=== PATIENT | male | born 1960 | race Caucasian/White ===

== ENCOUNTER 2018-08-01 17:55 | Observation (INO) | payer OTHER ==
--- NOTE | 2018-08-01 18:39 | EDPHY ---
H & P Stated Complaint: abd pain Time Seen by Provider: 08/01/18 18:39 HPI/ROS: HPI CHIEF COMPLAINT: Abdominal pain, nausea HISTORY OF PRESENT ILLNESS: 58-year-old male, history of ventral hernia repaired SBO, history of appendicitis, presents emergency room with abdominal pain. Patient states this started yesterday. He has had increasing bloating and nausea. Abdominal discomfort mid abdomen. He has not had any vomiting. Denies any diarrhea. He does state he had a bowel movement x2 today. As well as flatus. However increasing abdominal discomfort. Decided come the emergency room for evaluation Denies any chest pain or shortness of breath or fever. Past Medical History: Significant medical history for ventral hernia repair, small-bowel obstruction, appendicitis Past Surgical History: Hernia repair, appendicitis. Social History: Denies drugs alcohol tobacco. Family History: Noncontributory ROS REVIEW OF SYSTEMS: 10 Systems were reviewed and negative with the exception of the elements mentioned in the history of present illness. Exam Constitutional nontoxic appearing, triage nursing summary reviewed, vital signs reviewed, awake/alert. Eyes normal conjunctivae and sclera, EOMI, PERRLA. HENT normal inspection, atraumatic, moist mucus membranes, no epistaxis, neck supple/ no meningismus, no raccoon eyes. Respiratory clear to auscultation bilaterally, normal breath sounds, no respiratory distress, no wheezing. Cardiovascular rate normal, regular rhythm, no murmur, no edema, distal pulses normal. Gastrointestinal mild tender palpation diffusely, no peritoneal signs, no rebound, no guarding, normal bowel sounds, no distension, no pulsatile mass. Genitourinary no CVA tenderness. Musculoskeletal no midline vertebral tenderness, full range of motion, no calf swelling, no tenderness of extremities, no meningismus, good pulses, neurovascularly intact. Skin pink, warm, & dry, no rash, skin atraumatic. Neurologic awake, alert and oriented x 3, AAOx3, moves all 4 extremities equally, motor intact, sensory intact, CN II-XII intact, normal cerebellar, normal vision, normal speech. Psychiatric normal mood/affect. Heme/Lymph/Immune no lymphadenopathy. Differential diagnosis includes but is not limited to and in no particular order : Bowel obstruction, appendicitis, gallbladder disease, diverticulitis, colitis , enteritis, perforated viscus, gastritis, GERD, esophagitis, urinary tract infection, pyelonephritis, kidney stones Medical Decision Making: Plan for this patient IV establishment IV fluid bolus , 4 mg Zofran for nausea, basic blood work, KUB to rule out abnormal bowel gas pattern. And re-evaluate. May need to CT. Re-evaluation: KUB reviewed. No free air. However does have somewhat of abnormal bowel gas pattern. Plan will be for CT scan abdomen pelvis with IV contrast. CT scan abdomen pelvis with IV contrast called to me by Dr. Borges. This shows small bowel obstruction with distal small-bowel dilatations. This appears to have an adhesion in the right lower quadrant. He has had an appendectomy. Plan for NG tube. Plan for Medical-Surgical admission with surgery. Will consult surgery for this. 2120: I spoke with General surgery Dr. Clayton who is going to see and evaluate the patient. The patient has small-bowel obstruction. NG tube has been ordered given the amount of fluid in his stomach. Plan for hospital admission. Patient this time 9:21 p.m. Is hemodynamically stable no acute distress. Plan for admission SBO. Source: Patient - Personal History Current Tetanus/Diphtheria Vaccine: Yes Current Tetanus Diphtheria and Acellular Pertussis (TDAP): Yes Tetanus Vaccine Date: un sure - Medical/Surgical History Hx Asthma: No Hx Chronic Respiratory Disease: No Hx Diabetes: No Hx Cardiac Disease: No Hx Renal Disease: No Hx Cirrhosis: No Hx Alcoholism: No Hx HIV/AIDS: No Hx Splenectomy or Spleen Trauma: No Other PMH: medical- GOUT. surgical- hernia, tonsilectomy, growth from groin removed as child, previous admissions with bowel issues unknown etiolgy, appy - Social History Smoking Status: Never smoked Constitutional: Initial Vital Signs Temperature (C) 36.3 C 08/01/18 18:07 Heart Rate 53 L 08/01/18 18:07 Respiratory Rate 16 08/01/18 18:07 Blood Pressure 131/85 H 08/01/18 18:07 O2 Sat (%) 99 08/01/18 18:07 O2 Delivery Mode Room Air O2 (L/minute) 2 Allergies/Adverse Reactions: Penicillins Allergy (Intermediate, Verified 08/01/18 18:06) Itching Home Medications: Medication Instructions Recorded Herbals/Supplements -Info Only 1 ea PO DAILY 03/05/16 Acetaminophen/ASA/Caffeine 1 each PO DAILY PRN 08/01/18 [Excedrin Tablet (*)] Allopurinol [Allopurinol 300 MG 150 mg PO Q2D 08/01/18 (RX)] Medical Decision Making - Data Points Laboratory Results: Laboratory Results 08/01/18 18:50 08/01/18 18:50 Medications Given: Discontinued Medications Benzocaine (Hurricaine [place]) 1 each MM EDNOW ONE Stop: 08/01/18 21:47 Last Admin: 08/01/18 21:48 Dose: 1 each Hydromorphone HCl (Dilaudid) 0.5 mg IVP EDNOW ONE Stop: 08/01/18 20:02 Last Admin: 08/01/18 20:06 Dose: 0.5 mg Sodium Chloride (Ns) 1,000 mls @ 0 mls/hr IV EDNOW ONE; Wide Open PRN Reason: Protocol Stop: 08/01/18 18:46 Last Admin: 08/01/18 19:04 Dose: 1,000 mls Sodium Chloride (Ns) 1,000 mls @ 125 mls/hr IV CONT LEONARDO Stop: 01/28/19 21:44 Last Admin: 08/01/18 23:24 Dose: 1,000 mls Lidocaine (Lidocaine 2% Viscous) 5 ml PO EDNOW ONE Stop: 08/01/18 21:45 Last Admin: 08/01/18 21:46 Dose: 5 ml Ondansetron HCl (Zofran) 4 mg IVP EDNOW ONE Stop: 08/01/18 18:46 Last Admin: 08/01/18 19:05 Dose: 4 mg Point of Care Test Results: Chemistry 08/01/18 19:04 POC Troponin I 0.00 ng/mL ng/mL (0.00-0.08) Departure - Departure Disposition: [facility] Inpatient Acute Clinical Impression: SBO (small bowel obstruction) Condition: Good
[2018-08-01] MEDS ORDERED: ONDANSETRON 4 MG/2 ML VIAL IVP ONE (18:45)
[2018-08-01] MEDS ORDERED: NS 1,000 ML IV ONE (18:45)
[2018-08-01 19:04] LABS: PLATELET COUNT 197 10^3/uL (150-400)
[2018-08-01 19:20] LABS: INR 0.99 (0.83-1.16); PROTIME(PATIENT) 13.3 SEC (12.0-15.0)
[2018-08-01] MEDS ORDERED: IOPAMIDOL (ISOVUE-300) 100 ML BTL ONE (19:51)
[2018-08-01] MEDS ORDERED: HYDROmorphONE/DILAUDID 2 MG/ML INJ IVP ONE (20:01)
[2018-08-01] MEDS ORDERED: LIDOCAINE 2% JELLY 5 ML TUBE ONE (21:03)
[2018-08-01] MEDS ORDERED: BENZOCAINE UNIT DOSE SPRAY HURRICAINE MM ONE ×2 (21:03→21:46)
[2018-08-01] MEDS ORDERED: ONDANSETRON DISINTEGRATING 4 MG TAB PO PRN (21:40)
[2018-08-01] MEDS ORDERED: HYDROmorphONE/DILAUDID 1 MG/ML INJ IVP PRN (21:40)
[2018-08-01] MEDS ORDERED: ACETAMINOPHEN 325 MG TAB PO PRN (21:40)
[2018-08-01] MEDS ORDERED: ONDANSETRON 4 MG/2 ML VIAL IVP PRN (21:40)
[2018-08-01] MEDS ORDERED: LIDOCAINE 2% VISCOUS 15 ML UDCUP PO ONE (21:44)
[2018-08-01] MEDS ORDERED: NS 1,000 ML IV SCH (21:45)
--- NOTE | 2018-08-01 22:45 | GHP ---
DATE OF ADMISSION: 08/01/2018 CHIEF COMPLAINT: Abdominal pain. HISTORY OF PRESENT ILLNESS: This is a 58-year-old male presents with an acute onset abdominal pain. Briefly, he states that the last few days he was in his usual state of health, tolerating regular di et. States that he awoke today, had some increasing abdominal distention, which transitioned to pain . This progressed throughout the day. He does endorse having multiple bowel movements and passing f latus throughout the day. He has not been nauseated or vomited, but has had similar issues like this in the past, which prompted his presentation here [facility]. On my examination of the patient, he magalie lly denies pain after being medicated stating that he is somewhat frustrated as to the recurrent natu re of these bowel obstructions, but really has no complaints at this point in time. When he does hav e the pain, he describes it as a colicky-type pain without any centralization or location. Specifica lly, he states that it comes in waves. At its worst intensity, it is about a 5/10. He denies having any fevers or chills. PAST MEDICAL HISTORY: Gout. PAST SURGICAL HISTORY: He had a ventral hernia repair performed in 2002 or 2003. He had a laparosco pic appendectomy performed in 2016. CURRENT MEDICATIONS: Include allopurinol. ALLERGIES: To penicillin. SOCIAL HISTORY: Is very active, runs. Denies illicit drug use. REVIEW OF SYSTEMS: A full 10-point review was performed. PHYSICAL EXAMINATION: VITAL SIGNS: Temperature is 36.3, blood pressure is 115/71, heart rate is 52, and he is 97% on room air. GENERAL: He appears comfortable, in no apparent distress. EYES: His p upils are equal, round, and reactive to light and accommodation. He has anicteric sclerae, and his e xtraocular movements are intact. EARS, NOSE, MOUTH AND THROAT: He has dry mucous membranes. His he aring is normal. He has normal dentition. CARDIOVASCULAR: He has a regular rate and rhythm without any murmurs, rubs, or gallops. He is bradycardic. RESPIRATORY: There is no respiratory distress, rales or rhonchi. He is otherwise clear to auscultation bilaterally. GI: His abdomen is soft, nond istended, nontender. He has hypoactive bowel sounds. There are no masses. There is no rebound, ten derness or guarding appreciated. SKIN: Warm, normal color. No rashes or abrasions. MUSCULOSKELETA L: Full muscular strength without any muscular tenderness with normal joint range of motion. NEUROL OGIC: He is alert and oriented x3. His cranial nerves 2-12 are intact. He has no weakness and no n umbness. PSYCH: He is interacting appropriately. He is not anxious or encephalopathic. LYMPH/HEME /IMMUNOLOGIC: He has no cervical groin or supraclavicular lymphadenopathy appreciated. LABS: Leukocytosis to 11,000 with a left shift. H and H stable at 15 and 44. Coags are normal with an INR of 0.99. Blood gas shows lactic acid normal at 1.1. Chemistry is unremarkable with a normal sodium, normal potassium. Normal BUN and creatinine. IMAGING: Includes a plain film of his abdomen as well as a CT scan of his abdomen and pelvis. This shows some dilated fluid-filled loops of small bowel with a likely transition point in the right lowe r quadrant. There is no free fluid or free air. There is some fecalization of small bowel showing a t least some chronicity of this. ASSESSMENT AND PLAN: A 58-year-old male with recurrent small-bowel obstruction. Again, I had a long discussion with the patient in the emergency department. He feels well and would actually like to g o. I told him that given the concerning findings on the CT scan, we should watch him overnight, and he was okay with monitoring. Given the large dilatation and fluid-filled nature of his stomach, we wi ll plan to place a nasogastric tube for decompression. We will monitor him overnight. Again, it is odd that he continues to have bowel function without any nausea or vomiting, but we will continue to monitor. If he feels well tomorrow, we will likely proceed with removing the nasogastric tube and ad vancing diet. If he persists, likely small bowel follow-through. My findings and plan were aubrey silva with the emergency room physician at the time of consultation. /[id number]/MODL
[2018-08-02 07:15] VITALS: BP 122/79
--- NOTE | 2018-08-05 15:33 | PDDCSUM ---
Discharge Summary Discharge Summary: DISCHARGE SUMMARY Date of Admission August 01, 2018 Date of Discharge August 02, 2018 DISCHARGE DIAGNOSES -small-bowel obstruction HOSPITAL COURSE The patient was admitted from the ED with a symptomatic small-bowel obstruction. He had nasogastric tube decompression overnight. In the morning, he was feeling better passing flatus and having bowel function. His diet was subsequently advanced and well tolerated and he was sent home in stable condition on the afternoon of the . DISCHARGE MEDICATIONS No new medications DISPOSITION Home FOLLOW UP Follow up as needed
== END 2018-08-02 12:22 | disposition home or self-care (01) ==
LOC: F2W 22:14
PROVIDERS: ADMIT Surgery; ATTEND Surgery
PROC: 0D967ZZ Drainage of Stomach, Via Natural or Artificial Opening (ICD-10-PCS; principal; 2018-08-01)
DX: K56.609 Unspecified intestinal obstruction, unspecified as to partial versus complete obstruction (principal); E86.0 Dehydration
CPT/HCPCS: 74018; 74177; 96361; 96374; 96375; 99285; G0378; 84484-PO; J1170; J2405; Q9967